=== PATIENT | female | born 1940 | race Caucasian/White ===

== ENCOUNTER → 2017-08-31 | Day surgery (SDC) | payer OTHER, MEDICARE ==
[~2017-08-31] VITALS: Ht 160 cm; Wt 76.2 kg
[2017-08-31 10:31] LABS: ABSOLUTE EOSINOPHIL COUNT 0.2 /CUMM (0.0-0.7); MEAN PLATELET VOLUME 7.1 FL (7.4-10.4)
[2017-08-31 10:39] LABS: ABSOLUTE BASOPHIL COUNT 0 /CUMM (0.0-0.2); ABSOLUTE GRANULOCYTE CT 5.6 /CUMM (1.4-6.5); ABSOLUTE LYMPH COUNT 5.9 /CUMM (1.2-3.4); BASOPHIL % 0.3 % (0.0-2.0); EOSINOPHIL % 1.5 % (0-5); GRANULOCYTE % 43.8 % (42.2-75.2); MEAN CORPUSCULAR HGB 29.1 PG (27.0-31.0); MEAN CORPUSCULAR HGB CONC 33.5 G/DL (33.0-37.0); MEAN CORPUSCULAR VOLUME 86.8 FL (81.0-99.0); PLATELET COUNT 290 /CUMM (130-400); RBC DISTRIBUTION WIDTH 14.1 % (11.5-14.5); RED BLOOD CELL CT 4.07 /CUMM (4.20-5.40); WHITE BLOOD CELL COUNT 12.8 /CUMM (4.8-10.8)
[2017-08-31 10:43] LABS: HEMATOCRIT 35.3 % (37-47)
--- NOTE | 2017-08-31 10:43 | Operative Report ---
Operative/Inv Procedure Report Surgery Date: 08/31/17 Name of Procedure: cystocele/enterocele repair with mesh, rectocele repair with Acell mesh, urethral sling, cystoscopy Pre-Operative Diagnosis: cystocele grade 4, enterocele grade 3, rectocele grade 3-4, stress incontinence Post-Operative Diagnosis: same Estimated Blood Loss: 350cc Surgeon/Professor Of Law: Aga Jones MD Anesthesia: laryngeal mask airway Implants: vaginal mesh Drains: 16fr yuan Complications: none Condition: stable Operative Indication: symptomatic vaginal bulge and incontinence Operative/Procedure Note Note: Operative report on Kamilla Lorenzana. This is a 77-year-old female with symptomatic pelvic organ prolapse of the bladder intestines and rectum with stress incontinence. She was unable to maintain a pessary. She was eager to move forward was prolapse surgery. She was given the risks benefits and alternatives of the surgery and all questions were answered in the office. All consent signing the consent in the holding area all of the risks benefits and alternatives were reviewed again and all questions were answered again. Patient was taken to the operating room placed on the operating table in the supine position. Timeout was performed. IV antibiotics were infused. LMA general anesthesia was started. When she was completely anesthetized she was placed the dorsal lithotomy position. She was shaved to the genitalia region. Stool was evacuated from her rectal vault prior to proceeding with the surgery. She was prepped and draped in the standard sterile fashion. Yuan catheter was placed and the bladder was drained. The Yuan was clamped and placed on the abdomen. A Philadelphia retractor was placed with 6 stay hooks. The cystocele portion of the case was started with 1% lidocaine with epinephrine infiltrated into the anterior vaginal wall. An incision was made from the bladder neck to the vaginal apex. The vaginal flaps are created taking care not to injure the bladder. Once the bladder was completely dissected free and the retroperitoneal space was entered the sacrospinous process was easily palpated and the ligaments were clear on both sides. The Unasyn was then opened and used to place the Prolene sutures through the ligament and the bladder neck on the right and left side. The first By mouth thin device was defective and a new one had to be open. The Restoril Coloplast mesh was then opened and used to elevate the cystocele. The 4 Prolene sutures were placed through the mesh arms and sutured down. Prior to doing this 10 mL of methylene blue were given through the IV to check for the patency of the ureters later. 2-0 Vicryl sutures were placed at the bladder neck and at the apex to secure the mesh prior to tying down the 4 Prolene sutures. Once they were tied down the bladder was elevated. The area was grossly irrigated with bacitracin irrigation. At this time the Yuan was removed and a cystoscopy was performed. The bladder was globally inspected and there were no abnormalities. There were no tumors no trabeculation and the ureters were identified. There was excellent efflux from both ureteral orifices. Bladder was emptied with the Yuan again. The anterior vaginal wall was then closed with 2-0 Vicryl running suture locking every third suture. Attention was then turned to the sling portion of the case. 1% lidocaine with epinephrine was infiltrated into the anterior vaginal wall beneath the urethra. Incision was made and the vaginal flaps were created taking care not to injure the urethra with the dissection carried to the obturator space. The Altis Sling kit was then opened and the sling was placed with the trochars provided. Sling was placed in a tension-free manner and tightened with a DeBakey between the urethra and the sling. Once was seen to be in good position the tightening Prolene suture was cut. The area was copiously irrigated with bacitracin irrigation and the incision was closed with 3-0 Vicryl running locking suture every third. There was no mesh in the vaginal fornices. Attention was then turned to the posterior portion of the vaginal wall. The Philadelphia was repositioned. 1% lidocaine with epinephrine was infiltrated into the posterior wall taking care not to injure the rectum with dissection. The vaginal edmonds were dissected free from the rectum without injuring the rectum. Periodic rectal exams were performed to ensure that there was no rectal injury. 2-0 Vicryl interrupted sutures were placed into the fascial defect from the vaginal apex to the posterior fourchette. The Acell mesh which had been soaking for 20 minutes is then used over the fascial defect and interrupted sutures were tied down. The rectocele was nicely reduced and periodic rectal exams showed no injury. However the enterocele was adhered to the rectocele and needed to be dissected free. The peritoneum was entered and this was closed with running 3-0 Vicryl suture. The posterior vaginal wall was then closed using interrupted 2-0 Vicryl sutures from the apex down to the posterior fourchette with the Acell mesh placed between the fascial repair and sutures. 2 inch vaginal packing with bacitracin ointment was placed in the vaginal vault. Sponge and needle count were correct at the end of the case. Patient tolerated procedure well. Findings: no mesh in bladder, urethra or vaginal fornices. Excellent ureteral efflux from bilateral ureters. Discharge Disposition: PACU
== END ==
LOC: STS 02:20
PROVIDERS: Urology
DX: N39.3 Stress incontinence (female) (male) (principal); N81.11 Cystocele, midline; N81.6 Rectocele; I10 Essential (primary) hypertension; E03.9 Hypothyroidism, unspecified
CPT/HCPCS: C1771; C1781; J0131; J0690; J2250

== ENCOUNTER 2018-01-19 18:24 | Emergency (ER) | payer OTHER, MEDICARE ==
[~2018-01-19] VITALS: Ht 162.6 cm; Wt 74.8 kg
[2018-01-19 19:13] LABS: ABSOLUTE BASOPHIL COUNT 0 /CUMM (0.0-0.2); ABSOLUTE EOSINOPHIL COUNT 0.1 /CUMM (0.0-0.7); ABSOLUTE GRANULOCYTE CT 5.5 /CUMM (1.4-6.5); ABSOLUTE LYMPH COUNT 2.3 /CUMM (1.2-3.4); ABSOLUTE MONOCYTE COUNT 0.9 /CUMM (0.10-0.60); BASOPHIL % 0.3 % (0.0-2.0); EOSINOPHIL % 1.4 % (0-5); HEMATOCRIT 37.8 % (37-47); MEAN CORPUSCULAR HGB 28.8 PG (27.0-31.0); MEAN CORPUSCULAR HGB CONC 33.4 G/DL (33.0-37.0); MEAN CORPUSCULAR VOLUME 86.2 FL (81.0-99.0); MEAN PLATELET VOLUME 7.3 FL (7.4-10.4); PLATELET COUNT 412 /CUMM (130-400); RBC DISTRIBUTION WIDTH 15.1 % (11.5-14.5); RED BLOOD CELL CT 4.39 /CUMM (4.20-5.40); WHITE BLOOD CELL COUNT 8.8 /CUMM (4.8-10.8)
[2018-01-19 19:22] LABS: GRANULOCYTE % 62.7 % (42.2-75.2)
--- NOTE | 2018-01-19 19:55 | CT SCAN REPORT ---
EXAMINATION: CT HEAD without contrast CLINICAL INFORMATION: Rule out bleed COMPARISON: No prior CT scan available for comparison. TECHNIQUE: Computed axial tomographic sections acquired at 10 0.625 mm. Reformatted coronal view. DLP: 599 mGy-cm FINDINGS: CEREBRAL HEMISPHERES: There is no evidence of intra-axial or extra-axial mass, hemorrhage or acute infarct. BRAIN PARENCHYMA: Normal flores-white matter differentiation. SUBDURAL SPACE: No bleed. BASAL GANGLIA AND PINEAL GLAND: Unremarkable VENTRICLES: Ventricular dilatation is out of proportion to the degree of the atrophy. CEREBELLUM AND BRAINSTEM: No space-occupying mass, hemorrhage or acute infarct. CEREBELLOPONTINE ANGLES: No lesion found. ORBITS: No intraorbital mass. VESSELS: Unremarkable SKULL BASE: Unremarkable INCLUDED SINUSES AT SKULL BASE: Clear SKULL AND SKIN: No fracture or bone lesion found. IMPRESSION: 1. No intracranial bleed. 2. Ventriculomegaly raising suspicion for possible hydrocephaly/NPH. Clinical correlation recommended. Does the patient has symptoms of NPH (ataxia, incontinence, and confusion)?
--- NOTE | 2018-01-19 20:04 | RADIOLOGY REPORT ---
EXAMINATION: XR KNEE, RIGHT CLINICAL INFORMATION: Fall COMPARISON: None available at the time of this dictation. TECHNIQUE: frontal, lateral, tunnel and patella sunrise views FINDINGS: BONES: No fracture or dislocation is present. JOINTS: Narrowing of joint spaces combined with developed osteophyte from the edges of articular surfaces compatible with degenerative osteoarthritis. SOFT TISSUE: Coarse soft tissue calcifications probably benign synovial. IMPRESSION: 1. No fracture. 2. Degenerative osteoarthritis and soft tissue calcifications.
[2018-01-19 20:29] VITALS: BP 102/60
--- NOTE | 2018-01-19 20:30 | ED MVC/FALL/TRAUMA COMPLAINT ---
History of Present Illness General Chief Complaint: Fall Stated Complaint: PT FELL AND HAS A BUMP ON THE BACK OF HEAD Source: patient Exam Limitations: no limitations Vital Signs & Intake/Output Vital Signs & Intake/Output Vital Signs Date Time Temp Pulse Resp B/P B/P Pulse O2 O2 Flow FiO2 Mean Ox Delivery Rate 01/19 2029 98.1 92 20 102/60 96 Room Air 01/19 1951 Room Air 01/20 1832 98.0 96 18 118/64 98 Room Air Allergies Coded Allergies: MDX - Cefotetan (Intermediate, U 01/19/18) adhesive tape (Intermediate, RASH 01/19/18) Reconcile Medications Tylenol With Codeine (Tylenol With Codeine #3 Tablet) 300 MG-30 MG TABLET 1 TAB PO BIDP PRN PAIN Triage Note: 77F TO ED S/P FALL WITH HEADSTRIKE, -LOC. HAS LUMP TO BACK OF HEAD. DENIES C-SPINE TENDERNESS OR SYNCOPE, STATES SHE TURNED AROUND QUICKLY AND LOST HER BALANCE. DENIES THINNERS. DENIES N/V OR CHANGES IN VISION. ALSO FELL ONTO RIGHT KNEE WHICH SHE HAS A KNEE REPLACEMENT SCHEDULED FOR February. KNEE IS RED WITH SMALL CUT, BLEEDING CONTROLLED. PT HAS DIFFUSE RED PLAQUE RASH TO LEGS, ABDOMEN, CHEST FROM IBUPROFEN LAST WEEK. DENIES PAIN TO OTHER JOINTS AND DENIES CP/SOB Triage Nurses Notes Reviewed? yes Onset: Abrupt Duration: hour(s): (2), better, continues in ED Timing: single episode today Severity: mild, moderate Severity Numbers: 6 Injuries/Fall Location: head, lower extremity Method of Injury: fall Loss of Consciousness: no loss of consciousness No Modifying Factors: none LMP (ages 10-50): post menopausal, unknown : No Patient currently breastfeeds: No HPI: 77-year-old female history of hypertension, hypothyroidism presents for evaluation after a fall. Patient states she was pushing a cart when the cart collapsed causing her to lose her balance and fall. States that she hit her right knee and back of her head on the ground. There is no loss of consciousness. She is able to get up on her own. She's been a any since the fall. She does not take blood thinners. She denies neck pain chest pain abdominal pain and low back pain or hip pain. There is no dizziness lightheadedness chest pain or shortness breath before the fall. She reports the pain in her head as a 6 out of 10. She is not taking any medicine for it. No other injuries. (Chao Tovar) Past History Travel History Traveled to [place] past 21 day No Medical History Any Pertinent Medical History? see below for history Influenza Vaccine: 06/06/13 Surgical History Surgical History: non-contributory Psychosocial History What is your primary language Occitan Family History Hx Contributory? No (Chao Tovar) Review of Systems Review of Systems Constitutional: Reports: no symptoms. Eyes: Reports: no symptoms. Ears, Nose, Throat, Mouth: Reports: no symptoms. Respiratory: Reports: no symptoms. Cardiovascular: Reports: no symptoms. Gastrointestinal/Abdominal: Reports: no symptoms. Genitourinary: Reports: no symptoms. Musculoskeletal: Reports: see HPI, joint pain. Skin: Reports: no symptoms. Neurological/Psychological: Reports: headache. All Other Systems: Reviewed and Negative (Chao Tovar) Physical Exam Physical Exam General Appearance: well developed/nourished, no apparent distress, alert, awake Head: there is a scalp hematoma over the occipital scalp no lacerations no active bleeding Eyes: Bilateral: normal appearance, PERRL, EOMI, normal inspection. Ears, Nose, Throat, Mouth: hearing grossly normal, moist mucous membrane Neck: normal inspection, supple, full range of motion, no midline tenderness Respiratory: normal breath sounds, chest non-tender, no respiratory distress, lungs clear Cardiovascular: regular rate/rhythm, normal peripheral pulses Peripheral Pulses: 2+ radial (R), 2+ radial (L) Gastrointestinal: soft, non-tender Back: normal inspection, normal range of motion, no vertebral tenderness Extremities: normal range of motion, patient is moving all extremities equally without joint swelling. She has mild tenderness to palpation of the anterior right knee. No gross deformity full range of motion intact Neurologic/Psych: no motor/sensory deficits, awake, alert, oriented x 3, normal gait Skin: intact, normal color, warm/dry Core Measures ACS in differential dx? No CVA/TIA Diagnosis No Sepsis Present: No Sepsis Focused Exam Completed? No (Chao Tovar) Progress Differential Diagnosis: fracture, contusion, sprain, intracranial hemorrhage Plan of Care: Orders Procedure Date/time Status TROPONIN LEVEL 01/19 1837 Complete COMPREHENSIVE METABOLIC PANEL 01/19 1837 Complete CBC WITHOUT DIFFERENTIAL 01/19 1837 Complete EKG 01/19 1837 Active Laboratory Tests 01/19/18 1904: Anion Gap 11, Estimated GFR > 60, BUN/Creatinine Ratio 38.8 H, Glucose 114 H, Calcium 9.6, Total Bilirubin 0.7, AST 117 H, ALT 341 H, Alkaline Phosphatase 182 H, Troponin I < 0.01, Total Protein 6.7, Albumin 3.4 L, Globulin 3.3, Albumin/Globulin Ratio 1.0 L, CBC w Diff NO MAN DIFF REQ, RBC 4.39, MCV 86.2, MCH 28.8, MCHC 33.4, RDW 15.1 H, MPV 7.3 L, Gran % 62.7, Lymphocytes % 25.7, Monocytes % 9.9 H, Eosinophils % 1.4, Basophils % 0.3, Absolute Granulocytes 5.5, Absolute Lymphocytes 2.3, Absolute Monocytes 0.9 H, Absolute Eosinophils 0.1, Absolute Basophils 0 Patient seen and evaluated. She is here after mechanical fall there was no dizziness or lightheadedness before the fall. She did hit her head. There is no loss of consciousness no blood thinners. A CT of the head was obtained. She also reports some mild right knee pain x-ray was obtained. EKG is not showing any acute findings blood work shows mild transaminitis. CT of head is negative for trauma but does show some evidence of normal pressure hydrocephalus. Reviewed these results with patient she reports that she is aware of this and is in the process of seeing a neurologist. She denies any urinary incontinence change in mental status or problems with her balance. Patient was ambulated in the emergency department and has a steady gait with her cane. She feels like her walking is at baseline. Reviewed all results of today's visit with patient. Advised her to follow-up with her primary care doctor for further evaluation of the transaminitis. Also follow up with her neurologist. Continue Tylenol as needed for pain Tylenol with codeine for severe pain. Discussed return precautions case discussed with Dr. francis and he agrees. Diagnostic Imaging: Viewed by Me: Radiology Read, CT Scan. Discussed w/RAD: Radiology Read, CT Scan. Radiology Impression: PATIENT: ASHLEY HAYES PRESENT AGE: 77 PATIENT ACCOUNT NO: [id number] : 38 LOCATION: [facility] ORDERING PHYSICIAN: Elias HEARN SERVICE DATE: 01/19/18 EXAM TYPE : RAD - XRY-KNEE COMPLETE RIGHT EXAMINATION: XR KNEE, RIGHT CLINICAL INFORMATION : Fall COMPARISON: None available at the time of this dictation. TECHNIQUE: frontal, lateral, tunnel and patella sunrise views FINDINGS: BONES: No fracture or dislocation is present. JOINTS: Narrowing of joint spaces combined with developed osteophyte from the edges of articular surfaces compatible with degenerative osteoarthritis. SOFT TISSUE: Coarse soft tissue calcifications probably benign synovial. IMPRESSION: 1. No fracture. 2. Degenerative osteoarthritis and soft tissue calcifications. DICTATED BY: Rosario Hunter MD DATE/TIME DICTATED:01/19/181957 MOBILE DEVICE ENGINEER:ALMAZ DATE/TIME TRANSCRIBED:01/19/181957 CONFIDENTIAL, DO NOT COPY WITHOUT APPROPRIATE AUTHORIZATION. <Electronically signed in Other Vendor System> SIGNED BY: Rosario Hunter MD 01/19/182003, PATIENT: ASHLEY HAYES PRESENT AGE: 77 PATIENT ACCOUNT NO: [id number] : 38 LOCATION: [facility] ORDERING PHYSICIAN: Elias HEARN SERVICE DATE: 01/19/18 EXAM TYPE: CAT - CT HEAD WO IV CONTRAST EXAMINATION: CT HEAD without contrast CLINICAL INFORMATION: Rule out bleed COMPARISON: No prior CT scan available for comparison. TECHNIQUE: Computed axial tomographic sections acquired at 10 0.625 mm. Reformatted coronal view. DLP: 599 mGy-cm FINDINGS: CEREBRAL HEMISPHERES: There is no evidence of intra-axial or extra-axial mass, hemorrhage or acute infarct. BRAIN PARENCHYMA: Normal flores-white matter differentiation. SUBDURAL SPACE: No bleed. BASAL GANGLIA AND PINEAL GLAND: Unremarkable VENTRICLES: Ventricular dilatation is out of proportion to the degree of the atrophy. CEREBELLUM AND BRAINSTEM: No space-occupying mass, hemorrhage or acute infarct. CEREBELLOPONTINE ANGLES: No lesion found. ORBITS: No intraorbital mass. VESSELS: Unremarkable SKULL BASE: Unremarkable INCLUDED SINUSES AT SKULL BASE: Clear SKULL AND SKIN: No fracture or bone lesion found. IMPRESSION: 1. No intracranial bleed. 2. Ventriculomegaly raising suspicion for possible hydrocephaly/NPH. Clinical correlation recommended. Does the patient has symptoms of NPH (ataxia, incontinence, and confusion)? DICTATED BY: Rosario Hunter MD DATE/TIME DICTATED:01/19/181946 MOBILE DEVICE ENGINEER:ALMAZ DATE/TIME TRANSCRIBED:1946 CONFIDENTIAL, DO NOT COPY WITHOUT APPROPRIATE AUTHORIZATION. Initial ED EKG: normal sinus rhythm, borderline left axis deviation Prior EKG: unchanged (Rock HEARN,Chao) Departure Departure Disposition: HOME OR SELF CARE Condition: Stable Clinical Impression Primary Impression: Head injury Qualifiers: Encounter type: initial encounter Qualified Code: S09.90XA - Unspecified injury of head, initial encounter Referrals: Dionicio BENTON,Tyler Vazquez (PCP/Family) Additional Instructions: Rest, avoid heavy lifting bending or excessive physical activity. Tylenol as needed for pain Tylenol with codeine for severe pain. Follow-up with YOUr primary care doctor to review all results of today's visit. YOU should also follow-up with your neurologist. Monitor symptoms closely return with any concerns. Please go over all results of today's visit with your primary care doctor. Contact your primary care doctor to let them know you were here in the emergency room. There may be nonspecific findings which may not be related to your visit today here in the emergency room but may require further evaluation and chronic monitoring by your primary care doctor. If you had a laceration today the chance of foreign body always remains. You should follow-up with your primary care doctor for recheck in 3-5 days for a wound check. If you had an x-ray done there is a chance that a fracture could have been missed on initial read and you should follow-up with your primary care doctor for repeat x-rays if symptoms persist. If your blood pressure was elevated here in the emergency room please have rechecked by her primary care doctor within the next 48 hours by your primary care doctor. If you were prescribed a narcotic here in the emergency room or any type of controlled substances you're not allowed to drive while taking this medication or operate any type of heavy machinery. Narcotics can make you feel lightheaded dizziness nausea and can cause constipation. You may need to continuous pickling line pickler a stool softener. Thank you for choosing [facility] emergency room. Please return to the emergency room immediately if you have any other concerns worsening of symptoms. Departure Forms: Customer Survey General Discharge Information Prescriptions: Current Visit Scripts Tylenol With Codeine (Tylenol With Codeine #3 Tablet) 1 TAB PO BIDP PRN PAIN #10 TAB (Chao Tovar) PA/GRAVITY METER OPERATOR Co-Sign Statement Statement: ED Attending supervision documentation- x I saw and evaluated the patient. I have also reviewed all the pertinent lab results and diagnostic results. I agree with the findings and the plan of care as documented in the PA's/GRAVITY METER OPERATOR's documentation. [] I have reviewed the ED Record and agree with the PA's/GRAVITY METER OPERATOR's documentation. [] Additions or exceptions (if any) to the PAs/GRAVITY METER OPERATOR's note and plan are summarized below: [] (Rajendra BENTON,Michele)
[2018-01-19] MEDS ORDERED: TYLENOL WITH C1 EACH PO (20:43)
== END 2018-01-19 20:59 ==
LOC: ERH 18:24
PROVIDERS: Physician Assistant Medical
DX: S09.90XA Unspecified injury of head, initial encounter (principal); W19.XXXA Unspecified fall, initial encounter; Y92.9 Unspecified place or not applicable; Y93.9 Activity, unspecified
CPT/HCPCS: 73562-RT; 93005; 93010